=== PATIENT | female | born 1960 | race Caucasian/White ===

== ENCOUNTER 2020-11-12 20:33 | Emergency (ER) | payer OTHER ==
[~2020-11-12] VITALS: Ht 162.6 cm; Wt 68.0 kg
--- NOTE | 2020-11-12 20:50 | Emergency Room Report ---
History of Present Illness General Chief Complaint: Upper Respiratory Illness Source: Patient Present Illness HPI Disclaimer: Please note that this report is being documented using DRAGON technology. This can lead to erroneous entry secondary to incorrect interpretation by the dictating instrument. HPI: 60-year-old female with a history of asthma presents for infusion of monoclonal antibody at the request of her physician. Tested positive for COVID- 19 earlier today by rapid antigen test. Symptomatic since 11/09/2020. Reports diffuse body aches, intermittent fevers, intermittent shortness of breath and overall fatigue. Mild cough. Denies chest pain, palpitations, abdominal pain. Previously had diarrhea but now resolved. 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 EOMI. Resp: Normal work of breathing. No coughing. No wheezing. Skin: Intact. No abrasions, laceration or rash over the exposed skin MSK: Normal tone and bulk. Moving all extremities. Left upper extremity is in a splint from prior injury. Moving all digits. Good capillary refill Neuro: Awake and alert. Mentating appropriately Medical Decision Making Diagnostic Impression: Primary Impression: COVID-19 ER Course 60-year-old female testing positive for COVID-19 today presents for monoclonal antibody infusion at the request of her PMD. Arrives with stable vital signs in no acute distress. Patient meets criteria for monoclonal antibody infusion with Bamlanivimab. Provided with infusion drug fact sheet for patients who are considering receiving IV infusion. Patient understands and is aware that this medication is authorized for emergency use by the FDA and is still undergoing full testing. Understands monitoring necessary following infusion. Patient understands that this medication is intended to reduce symptoms and prevent hospitalization however the patient may require further testing, interventions and even hospitalization if symptoms worsen. Patient understands this is not a cure for COVID-19 infection. Addressed all patient questions. They have consented to receive monoclonal antibody infusion and for monitoring 1 hour post infusion for anaphylactic reaction. Infusion of Bamlanivimab was administered via IV over the duration of 1 hour. The patient was monitored and observed for any reactions to infusion that require acute medical intervention. The patient did not have any significant reactions during the 1 hour observation period following infusion and is stable for discharge and outpatient follow-up with PMD. Instructed to return with new or worsening symptoms. Understand agree with this treatment plan. Last Vital Signs Date Time Temp Pulse Resp B/P (MAP) Pulse Ox O2 Delivery O2 Flow Rate FiO2 11/12/20 20:40 97.5 66 18 166/91 (116) 93 Room Air Disposition: HOME, SELF-CARE Condition: Stable Marc Amaral MD Nov 12, 2020 20:50
[2020-11-12 20:56] VITALS: BP 166/91
[2020-11-12] MEDS ORDERED: Bamlanivimab Fact Sheet MISC ONE (21:00)
[2020-11-12] MEDS ORDERED: Bamlanivimab 700 MG in NS 275 ML IVPB SCH (21:00)
[2020-11-12 23:11] VITALS: BP 148/88
== END 2020-11-12 23:12 | disposition home or self-care (01) ==
LOC: EMR 21:10
DX: U07.1 COVID-19 (principal); M79.10 Myalgia, unspecified site; R53.83 Other fatigue
CPT/HCPCS: 96365; 99284; J7050; Q0239